=== PATIENT | female | born 1975 | race Caucasian/White ===

== ENCOUNTER 2017-09-03 19:23 | Emergency (ER) | payer MEDICAID ==
[~2017-09-03] VITALS: Ht 160 cm; Wt 86.3 kg
[2017-09-03 19:43] VITALS: BP 124/75
--- NOTE | 2017-09-03 20:16 | NUR ---
PT AMBULATED TO ER BED 12
--- NOTE | 2017-09-03 20:19 | NUR ---
APATIENT PRESENTS TO ED WITH C/O RT ANKLE PAIN. PT DENIES N/V/D; SKIN IS PINK/WARM/DRY; AAOX4 WITH EVEN AND STEADY GAIT; LUNGS CLEAR BL; HR EVEN AND REGULAR; PT DENIES ANY FEVER, CP, SOB, OR COUGH AT THIS TIME; PATIENT STATES PAIN OF 10/10 AT THIS TIME; VSS; PATIENT POSITIONED FOR COMFORT; HOB ELEVATED; BEDRAILS UP X2; BED DOWN. ER MD MADE AWARE OF PT STATUS.
--- NOTE | 2017-09-03 20:23 | NUR ---
PT DENIES ANY TRAUMA, FALL OR INJURY TO RT FOOT,ANKLE.
--- NOTE | 2017-09-03 21:00 | NUR ---
DR SANTOS ASSESSING PT AT BEDSIDE
[2017-09-03] MEDS ORDERED: KETOROLAC 60 MG/2 ML VIAL IM ONE (21:05)
--- NOTE | 2017-09-03 21:26 | NUR ---
US AT BEDSIDE
[2017-09-03 21:41] LABS: BASOPHILS % (AUTO) 0.3 % (0.0-2.0); EOSINOPHILS # (AUTO) 0.1 K/uL (0-0.4); EOSINOPHILS % (AUTO) 1.7 % (0.0-4.0); HEMATOCRIT 32.8 % (36-48); HEMOGLOBIN 10.9 g/dL (12.0-16.0); LYMPHOCYTES # (AUTO) 2.4 K/uL (2.5-16.5); LYMPHOCYTES % (AUTO) 39.4 % (20.5-51.1); MEAN CORPUSCULAR HEMOGLOBIN 28 pg (27-31); MEAN CORPUSCULAR HGB CONC 33 g/dL (33-37); MEAN CORPUSCULAR VOLUME 83.8 fL (80-94); MONOCYTES # (AUTO) 0.5 K/uL (0.8-1.0); MONOCYTES % (AUTO) 7.9 % (1.7-9.3); NEUTROPHILS # (AUTO) 3.1 K/uL (1.8-7.7); NEUTROPHILS % (AUTO) 50.7 % (42.2-75.2); PLATELET COUNT (AUTO) 309 K/uL (140-450); RED BLOOD CELL COUNT(AUTO) 3.91 MIL/uL (4.20-5.40); RED CELL DISTRIBUTION WIDTH 16.9 % (11.6-13.7); WHITE BLOOD COUNT (AUTO) 6.1 K/uL (4.8-10.8)
[2017-09-03 21:53] LABS: ANION GAP 13.3 (8-16); CARBON DIOXIDE 24.8 mmol/L (21-32); CREATININE 0.7 mg/dL (0.6-1.3); POTASSIUM 3.1 mmol/L (3.5-5.1)
[2017-09-03 21:59] LABS: ALBUMIN 3.2 g/dL (3.4-5.0); TOTAL BILIRUBIN 0.2 mg/dL (0.0-1.0)
[2017-09-03] MEDS ORDERED: MORPHINE SULFATE 4 MG/ML SYR IM ONE (22:05)
[2017-09-03 22:13] LABS: PROTHROMBIN TIME 9.9 secs (10.8-13.4)
[2017-09-03 22:45] VITALS: BP 115/71
--- NOTE | 2017-09-03 22:45 | NUR ---
Patient discharged with v/s stable. Written and verbal after care instructions given and explained. Patient alert, oriented and verbalized understanding of instructions. Ambulatory with steady gait. All questions addressed prior to discharge. ID band removed. Patient advised to follow up with PMD. Rx of MOTRIN AND NORCO given. Patient educated on indication of medication including possible reaction and side effects. Opportunity to ask questions provided and answered.
== END 2017-09-03 22:45 | disposition home or self-care (01) ==
LOC: MED 19:23
DX: M79.661 Pain in right lower leg (principal); Z90.49 Acquired absence of other specified parts of digestive tract
CPT/HCPCS: 36415; 80053; 81002; 81025; 85025; 85610; 85730; 93971; 96372; 99285; J1885; J2270; Q0092

== ENCOUNTER 2023-09-23 13:48 | Emergency (ER) | payer MEDICAID ==
[~2023-09-23] VITALS: Ht 165.1 cm; Wt 83.5 kg
[2023-09-23 13:55] VITALS: BP 118/83; PULSE 81; RESP 18; TEMP 97.6; O2SAT 97
[2023-09-23 15:05] LABS: BASOPHILS % (AUTO) 0.4 % (0.0-2.0); EOSINOPHILS # (AUTO) 0.1 K/uL (0-0.4); EOSINOPHILS % (AUTO) 1.6 % (0.0-4.0); HEMATOCRIT 39.6 % (36-48); HEMOGLOBIN 14.1 g/dL (12.0-16.0); LYMPHOCYTES # (AUTO) 0.9 K/uL (2.5-16.5); LYMPHOCYTES % (AUTO) 21.5 % (20.5-51.1); MEAN CORPUSCULAR HEMOGLOBIN 34 pg (27-31); MEAN CORPUSCULAR HGB CONC 36 g/dL (33-37); MEAN CORPUSCULAR VOLUME 94.4 fL (80-94); MONOCYTES # (AUTO) 0.5 K/uL (0.8-1.0); MONOCYTES % (AUTO) 11.5 % (1.7-9.3); NEUTROPHILS # (AUTO) 2.9 K/uL (1.8-7.7); PLATELET COUNT (AUTO) 249 K/uL (140-450); RED BLOOD CELL COUNT(AUTO) 4.19 MIL/uL (4.20-5.40); RED CELL DISTRIBUTION WIDTH 13.1 % (11.6-13.7); WHITE BLOOD COUNT (AUTO) 4.4 K/uL (4.8-10.8)
[2023-09-23 15:10] LABS: APPEARANCE,URINE CLEAR (CLEAR); BILIRUBIN,URINE NEGATIVE (NEGATIVE); BLOOD, URINE 1+ (NEGATIVE); COLOR,URINE YELLOW (YELLOW); LEUKOCYTE ESTERASE ,URINE NEGATIVE (NEGATIVE); NITRITE, URINE NEGATIVE (NEGATIVE); PROTEIN,URINE NEGATIVE (NEGATIVE); UGLUCOSE NEGATIVE (NEGATIVE); UROBILINOGEN,URINE 0.2 EU/dL (0.2 - 1)
[2023-09-23 15:25] LABS: ANION GAP 14.1 (8-16); CALCIUM 8.7 mg/dL (8.5-10.1); CREATININE 0.8 mg/dL (0.6-1.3); POTASSIUM 3.1 mmol/L (3.5-5.1)
[2023-09-23 15:29] LABS: ALANINE AMINOTRANSFERASE 60 U/L (12-78); ALBUMIN 3.5 g/dL (3.4-5.0); ALKALINE PHOSPHATASE 95 U/L (50-136); ASPARTATE AMINOTRANSFERASE 49 U/L (15-37); BILIRUBIN,DIRECT 0.1 mg/dL (0.0-0.3); LIPASE 36 U/L (16-77); TOTAL BILIRUBIN 0.5 mg/dL (0.0-1.0); TOTAL PROTEIN, SERUM 7.7 g/dL (6.4-8.2)
[2023-09-23 15:42] LABS: FLU A ANTIGEN negative (NEGATIVE); FLU B ANTIGEN negative (NEGATIVE)
[2023-09-23] MEDS: NACL 0.9% 1,000 ML IV ONE (16:15)
[2023-09-23] MEDS: POTASSIUM CHLORIDE 10 MEQ TABER PO ONE (16:18)
[2023-09-23] MEDS: ONDANSETRON 4 MG/2 ML VIAL IVP ONE (16:19)
[2023-09-23] MEDS: KETOROLAC 30 MG/ML VIAL IVP ONE (16:21)
[2023-09-23] MEDS ORDERED: PROM118S5 PO (17:01)
[2023-09-23] MEDS ORDERED: ATRO1TAB PO (17:01)
[2023-09-23] MEDS ORDERED: ONDA-188 PO (17:01)
[2023-09-23] MEDS ORDERED: AZIT250T4 PO (17:01)
[2023-09-23] MEDS ORDERED: IBUP-2213 PO (17:01)
[2023-09-23 17:27] VITALS: BP 122/68; PULSE 78; RESP 18; TEMP 97.9; O2SAT 99
== END 2023-09-23 17:20 | disposition home or self-care (01) ==
LOC: MED 13:48 → EDSEX 13:48 → MED 17:20
DX: J40 Bronchitis, not specified as acute or chronic (principal); R11.2 Nausea with vomiting, unspecified; R19.7 Diarrhea, unspecified; R10.11 Right upper quadrant pain; Z20.822 Contact with and (suspected) exposure to COVID-19; Z79.1 Long term (current) use of non-steroidal anti-inflammatories (NSAID); Z79.2 Long term (current) use of antibiotics; Z79.899 Other long term (current) drug therapy
CPT/HCPCS: 36415; 71045; 80048; 80076; 81003; 83690; 84484; 85025; 87426; 87804; 93005; 96361; 96374; 96375; 99285; J1885; J2405; J7030

== ENCOUNTER 2023-10-11 10:55 | Emergency (ER) | payer MEDICAID ==
[~2023-10-11] VITALS: Ht 165.1 cm; Wt 83.5 kg
[~2023-10-11 10:55] MED LIST: ATRO1TAB PO; AZIT250T4 PO; IBUP-2213 PO; ONDA-188 PO; PROM118S5 PO
[2023-10-11 11:02] VITALS: BP 105/69; PULSE 96; RESP 24; TEMP 97.8; O2SAT 99
[2023-10-11] MEDS: ONDANSETRON 4 MG ODT PO ONE (11:31)
[2023-10-11] MEDS: NACL 0.9% 1,000 ML IV ONE (12:06)
[2023-10-11] MEDS: KETOROLAC 30 MG/ML VIAL IVP ONE (12:10)
[2023-10-11] MEDS ORDERED: ACET-10509 PO (12:19)
[2023-10-11] MEDS ORDERED: ONDA-188 SL (12:19)
[2023-10-11 14:15] VITALS: BP 118/77; PULSE 74; RESP 24; TEMP 97.8; O2SAT 99
== END 2023-10-11 14:15 | disposition home or self-care (01) ==
LOC: MED 10:55
DX: R11.10 Vomiting, unspecified (principal); R19.7 Diarrhea, unspecified; R10.30 Lower abdominal pain, unspecified; D64.9 Anemia, unspecified; Z79.899 Other long term (current) drug therapy
CPT/HCPCS: 81025; 96361; 96374; 99283; J1885; J7030; Q0162

== ENCOUNTER 2024-01-14 22:10 | Emergency (ER) | payer MEDICAID ==
[~2024-01-14] VITALS: Ht 165.1 cm; Wt 87.1 kg
[~2024-01-14 22:10] MED LIST changes: +ACET500T99 PO; +ONDA-188 SL
[2024-01-14 22:17] VITALS: BP 124/71; PULSE 90; RESP 18; TEMP 98.2; O2SAT 96
[2024-01-14 23:21] VITALS: O2SAT 96
[2024-01-14 23:24] LABS: APPEARANCE,URINE SL CLOUDY (CLEAR); BILIRUBIN,URINE 1+ (NEGATIVE); BLOOD, URINE NEGATIVE (NEGATIVE); COLOR,URINE YELLOW (YELLOW); LEUKOCYTE ESTERASE ,URINE NEGATIVE (NEGATIVE); NITRITE, URINE POSITIVE (NEGATIVE); PROTEIN,URINE 1+ (NEGATIVE); UGLUCOSE NEGATIVE (NEGATIVE); UROBILINOGEN,URINE 0.2 EU/dL (0.2 - 1)
[2024-01-14 23:28] LABS: ICTOTEST POSITIVE (NEGATIVE)
[2024-01-14 23:29] LABS: BACTERIA,URINE 2+ /HPF (None Seen); MUCUS,URINE None Seen /LPF (None Seen); RBC,URINE 0 /HPF (0-5); SQUAMOUS EPITHELIAL CELL,UR 4-10 (MOD) /LPF (0-3 (FEW)); WBC,URINE 0-5 /HPF (0-5)
[2024-01-14] MEDS: ONDANSETRON 4 MG/2 ML VIAL IVP ONE (23:37)
[2024-01-14] MEDS: NACL 0.9% 1,000 ML IV ONE (23:37)
[2024-01-14 23:42] LABS: BASOPHILS % (AUTO) 0.4 % (0.0-2.0); EOSINOPHILS % (AUTO) 0.3 % (0.0-4.0); HEMATOCRIT 37.9 % (36-48); LYMPHOCYTES # (AUTO) 2.1 K/uL (2.5-16.5); LYMPHOCYTES % (AUTO) 28.1 % (20.5-51.1); MEAN CORPUSCULAR HEMOGLOBIN 32 pg (27-31); MEAN CORPUSCULAR HGB CONC 34 g/dL (33-37); MEAN CORPUSCULAR VOLUME 93.7 fL (80-94); MONOCYTES # (AUTO) 0.4 K/uL (0.8-1.0); NEUTROPHILS # (AUTO) 4.8 K/uL (1.8-7.7); NEUTROPHILS % (AUTO) 65.2 % (42.2-75.2); PLATELET COUNT (AUTO) 259 K/uL (140-450); RED BLOOD CELL COUNT(AUTO) 4.04 MIL/uL (4.20-5.40); RED CELL DISTRIBUTION WIDTH 13.3 % (11.6-13.7); WHITE BLOOD COUNT (AUTO) 7.4 K/uL (4.8-10.8)
[2024-01-14 23:48] LABS: CALCIUM 8.7 mg/dL (8.5-10.1); CARBON DIOXIDE 24.2 mmol/L (21-32); CREATININE 0.9 mg/dL (0.6-1.3); POTASSIUM 3.2 mmol/L (3.5-5.1)
[2024-01-14 23:59] LABS: ALBUMIN 3.8 g/dL (3.4-5.0); BILIRUBIN,DIRECT 0.2 mg/dL (0.0-0.3); TOTAL BILIRUBIN 0.9 mg/dL (0.0-1.0); TOTAL PROTEIN, SERUM 7.8 g/dL (6.4-8.2)
[2024-01-15] MEDS ORDERED: POTASSIUM CHLORIDE 10 MEQ TABER PO ONE (00:26)
[2024-01-15] MEDS: POTASSIUM CHLORIDE 10 MEQ TABER PO ONE (00:33)
[2024-01-15] MEDS: LEVOFLOXACIN 500 MG/D5W PREMIX 100 ML IV ONE (00:56)
[2024-01-15] MEDS ORDERED: METR-435 PO (02:21)
== END 2024-01-15 02:24 | disposition home or self-care (01) ==
LOC: MED 22:10
DX: E87.6 Hypokalemia (principal); K52.9 Noninfective gastroenteritis and colitis, unspecified; Z90.49 Acquired absence of other specified parts of digestive tract; Z79.899 Other long term (current) drug therapy
CPT/HCPCS: 36415; 80048; 80076; 81001; 83690; 85025; 87040; 87086; 96361; 96365; 96375; 99284; J1956; J2405; J7030

== ENCOUNTER 2024-01-30 01:18 | Emergency (ER) | payer MEDICAID ==
[~2024-01-30] VITALS: Ht 165.1 cm; Wt 83.9 kg
[~2024-01-30 01:18] MED LIST changes: +METR-435 PO
[2024-01-30 01:37] VITALS: BP 121/73; PULSE 59; RESP 16; TEMP 97.7; O2SAT 99
[2024-01-30 01:47] VITALS: BP 121/73; PULSE 59; RESP 16; TEMP 97.7
[2024-01-30 01:49] VITALS: O2SAT 99
[2024-01-30 02:12] LABS: APPEARANCE,URINE CLEAR (CLEAR); BILIRUBIN,URINE NEGATIVE (NEGATIVE); BLOOD, URINE NEGATIVE (NEGATIVE); COLOR,URINE YELLOW (YELLOW); LEUKOCYTE ESTERASE ,URINE NEGATIVE (NEGATIVE); NITRITE, URINE NEGATIVE (NEGATIVE); PROTEIN,URINE NEGATIVE (NEGATIVE); UGLUCOSE 3+ (NEGATIVE); UROBILINOGEN,URINE 0.2 EU/dL (0.2 - 1)
[2024-01-30 02:51] LABS: BACTERIA,URINE FEW /HPF (None Seen); MUCUS,URINE FEW /LPF (None Seen); RBC,URINE 0-5 /HPF (0-5); SQUAMOUS EPITHELIAL CELL,UR FEW /LPF (0-3 (FEW)); WBC,URINE 0-5 /HPF (0-5)
[2024-01-30] MEDS ORDERED: IBUP-2213 PO (03:31)
[2024-01-30] MEDS ORDERED: ACET-8905 PO (03:31)
[2024-01-30] MEDS ORDERED: ONDA8TAB87 PO (03:31)
[2024-01-30] MEDS: KETOROLAC 60 MG/2 ML VIAL IM ONE (03:45)
[2024-01-30] MEDS: ONDANSETRON 4 MG ODT PO ONE (03:46)
== END 2024-01-30 03:46 | disposition home or self-care (01) ==
LOC: MED 01:18
DX: R10.9 Unspecified abdominal pain (principal); R11.0 Nausea; R68.83 Chills (without fever); R03.0 Elevated blood-pressure reading, without diagnosis of hypertension; Z90.49 Acquired absence of other specified parts of digestive tract; Z98.890 Other specified postprocedural states; Z79.899 Other long term (current) drug therapy
CPT/HCPCS: 81001; 96372; 99283; J1885; Q0162

== ENCOUNTER 2024-03-07 14:48 | Emergency (ER) | payer MEDICAID ==
[~2024-03-07] VITALS: Ht 160 cm; Wt 80.3 kg
[~2024-03-07 14:48] MED LIST changes: +ACET-8905 PO; +ONDA8TAB87 PO
[2024-03-07 15:28] VITALS: BP_SYST 139; BP_SYST 19; BP_DIAS 66; PULSE 81; RESP 18; TEMP 97.9; O2SAT 97
[2024-03-07] MEDS: ONDANSETRON 4 MG/2 ML VIAL IVP ONE (16:21)
[2024-03-07] MEDS: KETOROLAC 30 MG/ML VIAL IVP ONE (16:23)
[2024-03-07] MEDS: NACL 0.9% 1,000 ML IV ONE (16:25)
[2024-03-07 16:39] LABS: BASOPHILS % (AUTO) 0.1 % (0.0-2.0); EOSINOPHILS # (AUTO) 0.2 K/uL (0-0.4); EOSINOPHILS % (AUTO) 2.1 % (0.0-4.0); HEMATOCRIT 39.8 % (36-48); HEMOGLOBIN 13.7 g/dL (12.0-16.0); LYMPHOCYTES # (AUTO) 2.2 K/uL (2.5-16.5); LYMPHOCYTES % (AUTO) 24.9 % (20.5-51.1); MEAN CORPUSCULAR HEMOGLOBIN 33 pg (27-31); MEAN CORPUSCULAR HGB CONC 34 g/dL (33-37); MEAN CORPUSCULAR VOLUME 94.5 fL (80-94); MONOCYTES # (AUTO) 0.5 K/uL (0.8-1.0); MONOCYTES % (AUTO) 5.7 % (1.7-9.3); NEUTROPHILS # (AUTO) 5.9 K/uL (1.8-7.7); NEUTROPHILS % (AUTO) 67.2 % (42.2-75.2); PLATELET COUNT (AUTO) 280 K/uL (140-450); RED BLOOD CELL COUNT(AUTO) 4.22 MIL/uL (4.20-5.40); RED CELL DISTRIBUTION WIDTH 12.6 % (11.6-13.7); WHITE BLOOD COUNT (AUTO) 8.7 K/uL (4.8-10.8)
[2024-03-07 16:56] LABS: APPEARANCE,URINE CLEAR (CLEAR); BILIRUBIN,URINE NEGATIVE (NEGATIVE); BLOOD, URINE NEGATIVE (NEGATIVE); COLOR,URINE YELLOW (YELLOW); LEUKOCYTE ESTERASE ,URINE NEGATIVE (NEGATIVE); NITRITE, URINE NEGATIVE (NEGATIVE); PROTEIN,URINE NEGATIVE (NEGATIVE); UGLUCOSE NEGATIVE (NEGATIVE); UROBILINOGEN,URINE 0.2 EU/dL (0.2 - 1)
[2024-03-07 17:04] LABS: LACTIC ACID 1.7 mmol/L (0.4-2.0)
[2024-03-07 17:08] LABS: ANION GAP 11.7 (8-16); CALCIUM 8.8 mg/dL (8.5-10.1); CARBON DIOXIDE 29.8 mmol/L (21-32); CREATININE 0.8 mg/dL (0.6-1.3); POTASSIUM 3.5 mmol/L (3.5-5.1)
[2024-03-07 17:19] LABS: ALBUMIN 3.3 g/dL (3.4-5.0); BILIRUBIN,DIRECT 0.1 mg/dL (0.0-0.3); TOTAL BILIRUBIN 0.5 mg/dL (0.0-1.0)
[2024-03-07 17:30] VITALS: BP 103/58; PULSE 59; RESP 18; O2SAT 98
[2024-03-07] MEDS ORDERED: LOPE-289 PO (17:50)
[2024-03-07] MEDS ORDERED: ONDA-188 PO (17:50)
== END 2024-03-07 18:12 | disposition home or self-care (01) ==
LOC: MED 14:48
DX: R10.11 Right upper quadrant pain (principal); R10.30 Lower abdominal pain, unspecified; R11.2 Nausea with vomiting, unspecified; R19.7 Diarrhea, unspecified; Z90.49 Acquired absence of other specified parts of digestive tract; Z98.890 Other specified postprocedural states; Z79.899 Other long term (current) drug therapy
CPT/HCPCS: 36415; 74176; 80048; 80076; 81003; 81025; 83605; 85025; 87040; 96361; 96374; 96375; 99285; J1885; J2405; J7030